=== PATIENT | male | born 1995 | race Caucasian/White ===

== ENCOUNTER 2017-01-17 22:32 | Emergency (ER) | payer BC ==
[~2017-01-17] VITALS: Ht 170.2 cm; Wt 132.4 kg
[2017-01-17 22:31] VITALS: BP 149/68
[2017-01-18] MEDS ORDERED: ACETAMINOPH W/CODEINE #3 TAB UD PO ONE (00:45)
[2017-01-18] MEDS ORDERED: ONDANSETRON 4 MG ORAL DISINTEGRATING TAB (S0181) PO ONE (00:45)
[2017-01-18] MEDS ORDERED: NAPR500T PO (00:47)
[2017-01-18] MEDS ORDERED: METAL LOCK LOOP XX ONE (00:55)
== END 2017-01-18 01:00 | disposition home or self-care (01) ==
LOC: M ED 01-18 00:07
DX: L55.9 Sunburn, unspecified (principal)